=== PATIENT | female | born 1950 | race Caucasian/White ===

== ENCOUNTER 2017-07-14 11:14 | Emergency (ER) | payer OTHER ==
[2017-07-14 11:22] VITALS: TEMP 97.9
--- NOTE | 2017-07-14 12:04 | CPEKG ---
Heart Rate: 168 RR Interval: 357 QRSD Interval: 92 QT Interval: 241 QTC Interval: 403 P [place]: 0 QRS [place]: 19 T Wave [place]: 125 EKG Severity - ABNORMAL ECG - EKG Impression: SUPRAVENTRICULAR TACHYCARDIA EKG Impression: NONSPECIFIC T ABNORMALITIES, LATERAL LEADS Electronically Signed By: Lg Man 14-Jul-2017 15:55:36
[2017-07-14] MEDS ORDERED: ADENOSINE 6 MG/2 ML VIAL ONE (12:08)
--- NOTE | 2017-07-14 12:16 | EDPHY ---
H & P Stated Complaint: SVT since last 5pm. SOB. Time Seen by Provider: 07/14/17 12:08 HPI/ROS: Chief Complaint: Tachycardia HPI: 67-year-old woman history of SVT in the past presenting with rapid heart rate and shortness of breath since last night similar to her prior episodes. Patient did attempt vagal maneuvers but did not have excess. Had some generalized weakness. No fevers or chills. No leg pain or swelling. No recent travel. 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 She did take the metoprolol febrile at night without relief. She also took another 1 this morning again without any significant change. ROS: 10 point Review of Systems is negative except as noted in the HPI. PMH: SVT Social History: No smoking, no alcohol, no recreational drug use Family History: non-contributory Physical Exam: Gen: Awake, Alert, No Distress HEENT: Nose: no rhinorrhea Eyes: PERRLA, EOMI Mouth: Moist mucosa Neck: Supple, no JVD Chest: nontender, lungs clear to auscultation Heart: Tachycardic, rate of about 170, Abd: Soft, non-tender, no guarding Back: no CVA tenderness, no midline tenderness Ext: no edema, non-tender Skin: no rash Neuro: CN II-XII intact, Sensation grossly intact, Strength 5/5 in bilateral upper and lower extremities - Personal History Current Tetanus Diphtheria and Acellular Pertussis (TDAP): Yes Tetanus Vaccine Date: 2010 - Medical/Surgical History Hx Asthma: No Hx Chronic Respiratory Disease: No Hx Diabetes: No Hx Cardiac Disease: Yes Hx Renal Disease: No Hx Cirrhosis: No Hx Alcoholism: No Hx HIV/AIDS: No Hx Splenectomy or Spleen Trauma: No Other PMH: SVT - Social History Smoking Status: Former smoker Constitutional: Initial Vital Signs Temperature (C) 36.6 C 07/14/17 11:15 Heart Rate 91 07/14/17 11:15 Respiratory Rate 18 07/14/17 11:15 Blood Pressure 116/96 H 07/14/17 11:15 O2 Sat (%) 96 07/14/17 11:15 O2 Delivery Mode Room Air Allergies/Adverse Reactions: No Known Allergies Allergy (Unverified 11/28/15 12:32) Home Medications: Medication Instructions Recorded Metoprolol Succinate 07/14/17 Metoprolol Succinate 25 mg PO BID #60 tab.er.24h 07/14/17 Medical Decision Making - Diagnostics EKG Interpretation: ECG time 1202. Narrow complex tachycardia with a rate of 168, normal axis, no acute ST or T-wave changes. Is regular. Is consistent with SVT. Procedures: Procedure: Vasovagal cardioversion. Patient presenting SVT. Vasovagal maneuvers realized my pushing on her abdomen in her resisting. After approximately 30 seconds she reverted to a sinus rhythm. No medical interventions were required. Performed by me. Differential Diagnosis: Patient has had no recurrence of her SVT. Electrolytes normal. Discharge her with continuing metoprolol 25 mg twice a day. Referral for allergy follow-up. - Data Points Laboratory Results: Laboratory Results 07/14/17 12:05 07/14/17 12:05 07/14/17 07/14/17 12:05 12:05 WBC 11.62 10^3/uL H 10^3/uL (3.80-9.50) RBC 4.58 10^6/uL 10^6/uL (4.18-5.33) Hgb 14.0 g/dL g/dL (12.6-16.3) Hct 40.9 % % (38.0-47.0) MCV 89.3 fL fL (81.5-99.8) MCH 30.6 pg pg (27.9-34.1) MCHC 34.2 g/dL g/dL (32.4-36.7) RDW 12.6 % % (11.5-15.2) Plt Count 307 10^3/uL 10^3/uL (150-400) MPV 8.7 fL fL (8.7-11.7) Neut % (Auto) 66.1 % % (39.3-74.2) Lymph % (Auto) 23.2 % % (15.0-45.0) [place] % (Auto) 9.0 % % (4.5-13.0) Eos % (Auto) 0.8 % % (0.6-7.6) Baso % (Auto) 0.6 % % (0.3-1.7) Nucleat RBC Rel Count 0.0 % % (0.0-0.2) Absolute Neuts (auto) 7.67 10^3/uL H 10^3/uL (1.70-6.50) Absolute Lymphs (auto) 2.70 10^3/uL 10^3/uL (1.00-3.00) Absolute Monos (auto) 1.05 10^3/uL H 10^3/uL (0.30-0.80) Absolute Eos (auto) 0.09 10^3/uL 10^3/uL (0.03-0.40) Absolute Basos (auto) 0.07 10^3/uL 10^3/uL (0.02-0.10) Absolute Nucleated RBC 0.00 10^3/uL 10^3/uL (0-0.01) Immature Gran % 0.3 % % (0.0-1.1) Immature Gran # 0.04 10^3/uL 10^3/uL (0.00-0.10) Sodium 141 mEq/L mEq/L (134-144) Potassium 4.3 mEq/L mEq/L (3.5-5.2) Chloride 108 mEq/L mEq/L (97-110) Carbon Dioxide 19 mEq/l L mEq/l (22-31) Anion Gap 14 mEq/L mEq/L (8-16) BUN 21 mg/dL mg/dL (7-23) Creatinine 0.9 mg/dL mg/dL (0.6-1.0) Estimated GFR > 60 Glucose 123 mg/dL H mg/dL (70-100) Calcium 9.4 mg/dL mg/dL (8.5-10.4) Departure - Departure Disposition: Home, Routine, Self-Care Clinical Impression: Supraventricular tachycardia Condition: Good Instructions: Supraventricular Tachycardia (ED), Valsalva Maneuver (ED) Additional Instructions: Continue taking metoprolol, 25 mg twice a day. Follow up with Cardiology in 3-4 days for further evaluation. Return to the emergency department for increasing racing heart, lightheadedness , fainting, chest pain, shortness of breath, or any other concerns. Referrals: Kimberly Bradley MD [Primary Care Provider] - As per Instructions Justyn Lerma MD [Medical Doctor] - As per Instructions Prescriptions: Metoprolol Succinate 25 mg PO BID #60 tab.er.24h
[2017-07-14 12:46] LABS: % IMMATURE GRANULYOCYTES 0.3 % (0.0-1.1); ABSOLUTE IMMATURE GRANULOCYTES 0.04 10^3/uL (0.00-0.10); ADD DIFF? NO; ADD MORPH? NO; ADD SCAN? NO; ATYPICAL LYMPHOCYTE FLAG 10 (0-99); FRAGMENT RBC FLAG 0 (0-99); HEMATOCRIT 40.9 % (38.0-47.0); LEFT SHIFT FLG 0 (0-99); LIPEMIA HEMOLYSIS FLAG 90 (0-99); MEAN CELL HEMOGLOBIN 30.6 pg (27.9-34.1); MEAN CELL HEMOGLOBIN CONCENTR. 34.2 g/dL (32.4-36.7); MEAN CELL VOLUME 89.3 fL (81.5-99.8); MEAN PLATELET VOLUME 8.7 fL (8.7-11.7); PLATELET CLUMPS FLAG 0 (0-99); PLATELET COUNT 307 10^3/uL (150-400); RED BLOOD CELL COUNT 4.58 10^6/uL (4.18-5.33); RED CELL DISTRIBUTION WIDTH 12.6 % (11.5-15.2)
[2017-07-14 12:52] LABS: ANION GAP 14 mEq/L (8-16); CALCIUM 9.4 mg/dL (8.5-10.4); CARBON DIOXIDE 19 mEq/l (22-31); CHLORIDE 108 mEq/L (97-110); CREATININE 0.9 mg/dL (0.6-1.0); GLOMERULAR FILTRATION RATE > 60; GLUCOSE 123 mg/dL (70-100); POTASSIUM 4.3 mEq/L (3.5-5.2); SODIUM 141 mEq/L (134-144)
[2017-07-14 13:52] VITALS: RESP 16; O2SAT 97
[2017-07-14 14:16] VITALS: BP 113/79; PULSE 72
--- NOTE | 2017-07-14 16:02 | CPEKG ---
Heart Rate: 75 RR Interval: 800 P-R Interval: 136 QRSD Interval: 84 QT Interval: 376 QTC Interval: 420 P [place]: 48 QRS [place]: 33 T Wave [place]: -15 EKG Severity - BORDERLINE ECG - EKG Impression: SINUS RHYTHM EKG Impression: BORDERLINE T ABNORMALITIES, INFERIOR LEADS Electronically Signed By: Ralph Man 20-Jul-2017 17:07:10
== END 2017-07-14 14:27 | disposition home or self-care (01) ==
DX: I47.1 Supraventricular tachycardia (principal); Z87.891 Personal history of nicotine dependence
CPT/HCPCS: J0153

== ENCOUNTER 2017-07-28 19:33 | Emergency (ER) | payer OTHER ==
[2017-07-28 19:46] VITALS: TEMP 97.5
--- NOTE | 2017-07-28 19:54 | CPEKG ---
Heart Rate: 184 RR Interval: 326 QRSD Interval: 88 QT Interval: 268 QTC Interval: 469 P [place]: 0 QRS [place]: -9 T Wave [place]: 30 EKG Severity - ABNORMAL ECG - EKG Impression: SUPRAVENTRICULAR TACHYCARDIA Electronically Signed By: Aamir Wooten 28-Jul-2017 20:05:58
[2017-07-28] MEDS ORDERED: ADENOSINE 6 MG/2 ML VIAL IVP ONE (20:00)
[2017-07-28] MEDS ORDERED: NS 500 ML IV ONE (20:00)
--- NOTE | 2017-07-28 20:05 | EDPHY ---
H & P Stated Complaint: hx svt elevate hr Time Seen by Provider: 07/28/17 19:55 HPI/ROS: CHIEF COMPLAINT: SVT HISTORY OF PRESENT ILLNESS: The patient is a 67-year-old female who is healthy other than a history of SVT. She states that it is happen more often in last couple of months than typically. She typically can get her symptoms to resolve with vagal maneuvers. Today this did not work. His symptoms have been present since 3:00 p.m.. She takes metoprolol 25 mg twice daily. Her heart rate is currently 180 and regular. She denies recent fevers or illness. She denies chest pain or shortness of breath. REVIEW OF SYSTEMS: Constitutional: denies: chills, fever, recent illness, recent injury EENTM: denies: blurred vision, double vision, nose congestion Respiratory: denies: cough, shortness of breath Cardiac: See HPI Gastrointestinal/Abdominal: denies: abdominal pain, diarrhea, nausea, vomiting, blood streaked stools Genitourinary: denies: dysuria, frequency, hematuria, pain Musculoskeletal: denies: joint pain, muscle pain Skin: denies: lesions, rash, jaundice, bruising Neurological: denies: headache, numbness, paresthesia, tingling, dizziness, weakness Hematologic/Lymphatic: denies: blood clots, easy bleeding, easy bruising Immunologic/allergic: denies: HIV/AIDS, transplant EXAM: GENERAL: Well-appearing, well-nourished and in no acute distress. HEAD: Atraumatic, normocephalic. EYES: Pupils equal round and reactive to light, extraocular movements intact, sclera anicteric, conjunctiva are normal. ENT: TMs normal, nares patent, oropharynx clear without exudates. Moist mucous membranes. NECK: Normal range of motion, supple without lymphadenopathy or JVD. LUNGS: Breath sounds clear to auscultation bilaterally and equal. No wheezes rales or rhonchi. HEART: Tachycardic ABDOMEN: Soft, nontender, normoactive bowel sounds. No guarding, no rebound. No masses appreciated. BACK: No CVA tenderness, no spinal tenderness, step-offs or deformities EXTREMITIES: Normal range of motion, no pitting or edema. No clubbing or cyanosis. NEUROLOGICAL: Cranial nerves II through XII grossly intact. Normal speech, normal gait. 5 strength, normal movement in all extremities, normal sensation PSYCH: Normal mood, normal affect. SKIN: Warm, dry, normal turgor, no visible rashes or lesions. Source: Patient Exam Limitations: No limitations - Personal History Current Tetanus/Diphtheria Vaccine: Yes Current Tetanus Diphtheria and Acellular Pertussis (TDAP): Yes Tetanus Vaccine Date: 2010 - Medical/Surgical History Hx Asthma: No Hx Chronic Respiratory Disease: No Hx Diabetes: No Hx Cardiac Disease: Yes Hx Renal Disease: No Hx Cirrhosis: No Hx Alcoholism: No Hx HIV/AIDS: No Hx Splenectomy or Spleen Trauma: No Other PMH: SVT - Family History Significant Family History: No pertinent family hx - Social History Smoking Status: Former smoker Alcohol Use: Sober Drug Use: None Constitutional: Initial Vital Signs Temperature (C) 36.4 C 07/28/17 19:42 Heart Rate 186 H 07/28/17 19:42 Respiratory Rate 18 07/28/17 19:42 Blood Pressure 107/78 07/28/17 19:42 O2 Sat (%) 96 07/28/17 19:42 O2 Delivery Mode Room Air O2 (L/minute) 2 Allergies/Adverse Reactions: No Known Allergies Allergy (Unverified 11/28/15 12:32) Home Medications: Medication Instructions Recorded Metoprolol Succinate 07/14/17 Metoprolol Succinate 25 mg PO BID #60 tab.er.24h 07/14/17 Medical Decision Making - Diagnostics EKG Interpretation: An EKG obtained and was read and documented in trace view. Please see trace view for full reading and report. SVT, similar to previous A repeat EKG obtained and was read and documented in trace view. Please see trace view for full reading and report. Sinus rhythm ED Course/Re-evaluation: We did attempt vagal maneuvers here in the emergency department including blowing through syringe, carotid massage, breath-holding and abdominal compression as well as Trendelenburg and leg lift. None of these worked. We will treat her with adenosine. 8:10 p.m. the patient conferred with 6 mg adenosine. She feels completely better. She has follow-up with Dr. Manrique in 2 weeks to consider ablation. She declines further workup or testing at this time. We will observe. 8:50 p.m. the patient is doing completely well and is eager to go home. She declines further workup or testing. Differential Diagnosis: Partial list of the Differential diagnosis considered include but were not limited to; SVT, AFib and although unlikely based on the history and physical exam, I also considered acute coronary disease, infection, electrolyte abnormality. I discussed these differential diagnoses and the plan with the patient as well as the usual and expected course. The patient understands that the diagnosis is provisional and that in medicine we are not always correct and that further workup is often warranted. Usual and customary warnings were given. All of the patient's questions were answered. The patient was instructed to return to the emergency department should the symptoms at all worsen or return, otherwise to followup with the physician as we discussed. - Data Points Medications Given: Discontinued Medications Adenosine (Adenosine) 6 mg IVP EDNOW ONE Stop: 07/28/17 20:01 Last Admin: 07/28/17 20:11 Dose: 6 mg Sodium Chloride (Ns) 500 mls @ 0 mls/hr IV ONCE ONE PRN Reason: Wide Open Stop: 07/28/17 20:01 Last Admin: 07/28/17 20:00 Dose: 500 mls Departure - Departure Disposition: Home, Routine, Self-Care Clinical Impression: Supraventricular tachycardia Condition: Fair Instructions: Supraventricular Tachycardia (ED) Referrals: Kimberly Bradley MD [Primary Care Provider] - As per Instructions Lei Manrique MD [Medical Doctor] - As per Instructions
--- NOTE | 2017-07-28 20:29 | CPEKG ---
Heart Rate: 84 RR Interval: 714 P-R Interval: 152 QRSD Interval: 90 QT Interval: 392 QTC Interval: 464 P [place]: 56 QRS [place]: 16 T Wave [place]: 23 EKG Severity - NORMAL ECG - EKG Impression: SINUS RHYTHM Electronically Signed By: Aamir Wooten 28-Jul-2017 20:45:00
[2017-07-28 20:47] VITALS: BP 104/74; PULSE 81; RESP 20; O2SAT 95
== END 2017-07-28 21:04 | disposition home or self-care (01) ==
DX: I47.1 Supraventricular tachycardia (principal); Z87.891 Personal history of nicotine dependence
CPT/HCPCS: 96374; J0153

== ENCOUNTER 2017-09-14 10:45 | Observation (INO) | payer OTHER ==
[2017-09-14] MEDS ORDERED: NS 1,000 ML IV ONE (11:02)
--- NOTE | 2017-09-14 11:20 | CPEKG ---
Heart Rate: 83 RR Interval: 723 P-R Interval: 136 QRSD Interval: 88 QT Interval: 384 QTC Interval: 452 P [place]: 40 QRS [place]: 7 T Wave [place]: 14 EKG Severity - NORMAL ECG - EKG Impression: SINUS RHYTHM Electronically Signed By: Justyn Lerma 14-Sep-2017 17:40:20
--- NOTE | 2017-09-14 11:20 | CPEKG ---
Heart Rate: 83 RR Interval: 723 P-R Interval: 136 QRSD Interval: 88 QT Interval: 384 QTC Interval: 452 P [place]: 40 QRS [place]: 7 T Wave [place]: 14 EKG Severity - NORMAL ECG - EKG Impression: SINUS RHYTHM Electronically Signed By: Justyn Lerma 14-Sep-2017 17:40:20
[2017-09-14 11:32] LABS: PLATELET COUNT 278 10^3/uL (150-400)
[2017-09-14 11:41] LABS: INR 0.99 (0.83-1.16)
--- NOTE | 2017-09-14 11:41 | PDHPUP ---
History & Physical Update H&P update statement: This history and physical update is based on an assessment of the patient which was completed after admission or registration (within 24 hours), but prior to the surgery/procedure. H&P update: H&P reviewed & patient examined, no change in patient's condition since H&P completed
[2017-09-14] MEDS ORDERED: HEPARIN 10,000 UNIT/10 ML MDV ONE (12:11)
[2017-09-14] MEDS ORDERED: LIDOCAINE 1% 300 MG/30 ML SDV ONE (12:11)
[2017-09-14] MEDS ORDERED: ISOPROTERENOL HCL/D5W 0.2 MG/50 ML BAG IV ONE (12:12)
[2017-09-14] MEDS ORDERED: BUPIVACAINE 0.5% 30 ML SDV ONE (12:12)
[2017-09-14] MEDS ORDERED: DEXAMETHASONE 4 MG/ML VIAL ONE (12:53)
[2017-09-14] MEDS ORDERED: PROPOFOL 200 MG/20 ML VIAL ONE (12:53)
[2017-09-14] MEDS ORDERED: PROPOFOL/EMULSION 500 MG/50 ML BOTTLE IV ONE (12:53)
[2017-09-14] MEDS ORDERED: fentaNYL 100 MCG/2 ML INJ ONE (12:53)
--- NOTE | 2017-09-14 12:53 | PDANEPAE ---
ANE History of Present Illness Patient presents for SVT ablation ANE Past Medical History - Cardiovascular History Hx Arrhythmias: Yes - Pulmonary History Hx Oxygen in Use at Home: No Hx Sleep Apnea: No - Endocrine History Hx Diabetes: No ANE Review of Systems Review of Systems: ANE Patient History - Allergies Allergies/Adverse Reactions: adhesive Allergy (Verified 09/13/17 10:48) Rash - Home Medications Home medications: home medication list seen and reviewed Home Medications: Herbals/Supplements -Info Only 1 ea PO DAILY 09/13/17 [Last Taken Unknown] Metoprolol Succinate Xr [Toprol Xl 25 mg (*)] 25 mg PO BID 09/13/17 [Last Taken Unknown] - NPO status NPO Status: no food or drink >8 hours - Anes Hx Anes Hx: no prior problems - Smoking Hx Smoking Status: Former smoker ANE Labs/Vital Signs - Labs Result Diagrams: 09/14/17 11:20 09/14/17 11:20 - Vital Signs Height: 170 cm Weight: 96.2 kg ANE Physical Exam - Airway Neck exam: FROM Mallampati Score: Class 1 Mouth exam: normal dental/mouth exam - Pulmonary Pulmonary: no respiratory distress - Cardiovascular Cardiovascular: regular rate and rhythym - ASA Status ASA Status: II ANE Anesthesia Plan Anesthesia Plan: general endotracheal anesthesia
[2017-09-14] MEDS ORDERED: ONDANSETRON 4 MG/2 ML VIAL ONE (12:54)
[2017-09-14] MEDS ORDERED: PHENYLEPHRINE HCL 100 MCG/ML SYR ONE ×2 (13:15)
[2017-09-14] MEDS ORDERED: ROCURONIUM 100 MG/10 ML VIAL ONE (13:50)
[2017-09-14] MEDS ORDERED: SUGAMMADEX SODIUM 200 MG/2 ML VIAL IVP ONE (14:27)
[2017-09-14] MEDS ORDERED: ACETAMINOPHEN 325 MG TAB PO PRN (14:29)
[2017-09-14] MEDS ORDERED: ONDANSETRON 4 MG/2 ML VIAL IVP PRN ×2 (14:29→14:49)
[2017-09-14] MEDS ORDERED: NALOXONE HCL 0.4 MG/ML INJ IVP PRN (14:49)
[2017-09-14] MEDS ORDERED: fentaNYL 100 MCG/2 ML INJ IVP PRN (14:49)
[2017-09-14] MEDS ORDERED: ACETAMINOPHEN 500 MG TAB PO PRN (14:49)
[2017-09-14] MEDS ORDERED: LR 500 ML IV PRN (14:49)
--- NOTE | 2017-09-14 14:49 | POSTANESTH ---
Post Anesthetic Evaluation Cardiovascular Status: Normal, Stable Respiratory Status: Normal, Stable Level of Consciousness/Mental Status: Can Participate in Eval Pain Control: Adequate, Prn Tx Ordered Nausea/Vomiting Control: Adequate, Prn Tx Ordered Complications Possibly Related to Anesthesia: None Noted
--- NOTE | 2017-09-14 16:30 | CPEKG ---
Heart Rate: 84 RR Interval: 714 P-R Interval: 160 QRSD Interval: 96 QT Interval: 428 QTC Interval: 507 P [place]: 53 QRS [place]: 25 T Wave [place]: 27 EKG Severity - BORDERLINE ECG - EKG Impression: SINUS RHYTHM EKG Impression: BORDERLINE T ABNORMALITIES, INFERIOR LEADS EKG Impression: BORDERLINE PROLONGED QT INTERVAL Electronically Signed By: Justyn Lerma 14-Sep-2017 17:40:32
--- NOTE | 2017-09-14 16:30 | CPEKG ---
Heart Rate: 84 RR Interval: 714 P-R Interval: 160 QRSD Interval: 96 QT Interval: 428 QTC Interval: 507 P [place]: 53 QRS [place]: 25 T Wave [place]: 27 EKG Severity - BORDERLINE ECG - EKG Impression: SINUS RHYTHM EKG Impression: BORDERLINE T ABNORMALITIES, INFERIOR LEADS EKG Impression: BORDERLINE PROLONGED QT INTERVAL Electronically Signed By: Justyn Lerma 14-Sep-2017 17:40:32
[2017-09-14] MEDS: OXYCODONE/APAP 5/325 TAB PO PRN (23:18)
[2017-09-15 05:30] LABS: PLATELET COUNT 250 10^3/uL (150-400)
[2017-09-15 05:40] LABS: CREATINE KINASE 22 IU/L (0-156)
[2017-09-15 05:56] LABS: INR 1.04 (0.83-1.16); PROTIME(PATIENT) 13.5 SEC (12.0-15.0)
[2017-09-15 08:02] VITALS: RESP 16; O2SAT 93
--- NOTE | 2017-09-15 08:38 | CPEKG ---
Heart Rate: 65 RR Interval: 923 P-R Interval: 152 QRSD Interval: 98 QT Interval: 448 QTC Interval: 466 P [place]: 49 QRS [place]: 36 T Wave [place]: 35 EKG Severity - NORMAL ECG - EKG Impression: SINUS RHYTHM Electronically Signed By: Justyn Lerma 15-Sep-2017 11:01:03
--- NOTE | 2017-09-15 08:38 | CPEKG ---
Heart Rate: 65 RR Interval: 923 P-R Interval: 152 QRSD Interval: 98 QT Interval: 448 QTC Interval: 466 P [place]: 49 QRS [place]: 36 T Wave [place]: 35 EKG Severity - NORMAL ECG - EKG Impression: SINUS RHYTHM Electronically Signed By: Justyn Lerma 15-Sep-2017 11:01:03
[2017-09-15] MEDS: OXYCODONE/APAP 5/325 TAB PO PRN (08:51)
[2017-09-15] MEDS ORDERED: Herbals/Supplements -Info Only PO SCH (09:00)
[2017-09-15] MEDS ORDERED: ASPIRIN 325 MG TAB PO SCH (09:00)
--- NOTE | 2017-09-15 09:09 | ASMTCASEMG ---
Living Arrangements What is your living Answers: With Child(al) arrangement? Who do you live with? Type Of Residence What kind of residence do Answers: House you live in? Discharge Plan Comments Coordination Status Comments Notes: Pt is a 65 y/o female admitted for a SVT. Anticipates that pt will d/c independent when medically stable w/ supportive family. No therapies ordered at this time. CM available for changes. Date Signed: 09/15/2017 09:08 AM Electronically Signed By:VISHNU Benítez
[2017-09-15] MEDS ORDERED: FLU VACC QS 2017-18 (3YR+)/PF 0.5 ML SYR (FLUARIX QUAD) IM ONE (09:43)
[2017-09-15 12:08] VITALS: PULSE 63; TEMP 97.9
[2017-09-15 12:15] VITALS: BP 94/62
--- NOTE | 2017-09-15 12:27 | ECHO ---
[email or web address] [address] [address] Main: [phone] Fax: Transthoracic Echocardiogram Name: SEAN BARFIELD MR#: [id number] Study Date: 09/15/2017 Study Time: 08:06 AM Date of : 1950 Age: 67 year(s) Height: 167.6 cm (66 in.) Weight: 96.16 kg (212 lb.) BSA: 2.05 m2 Gender: Female Examination: Echo Indication: Post EP, Supraventricular Tachycardia Image Quality: Contrast: Requested by: Lei Manrique BP: 110 mmHg/65 mmHg Heart Rate: Rhythm: Indication: Post EP, Supraventricular Tachycardia Procedure Staff Public Message Service Supervisor: López Kaur Reading Physician: Harvinder Grady Requesting Provider: Measurements: Chambers Valvular Assessment AV/MV Valvular Assessment TV/PV Normal Normal Normal Name Value Range Name Value Range Name Value Range Ao Yolanda (MM): 3.9 cm (2.2 cm-3.7 AV Vmax: 1.13 m/s (1 m/s-1.7 PV Vmax: 0.98 m/s (0.6 m/s-0.9 cm) m/s) m/s) IVSd (2D): 0.9 cm (0.6 cm-1.1 AV maxP mmHg ( - ) PV PGmax: 4 mmHg ( - ) cm) LVOT Vmax: 0.82 m/s (0.7 m/s-1.1 LVDd (2D): 5.2 cm (3.9 cm-5.3 m/s) cm) MV E Vmax: 0.52 m/s ( - ) LVDs (2D): 2.8 cm (2.1 cm-4 MV A Vmax: 0.88 m/s ( - ) cm) MV E/A: 0.59 ( - ) LVPWd (2D): 0.9 cm ( - ) LVEF (2D): 77 (>=54 %) Continued Measurements: Chambers Valvular Assessment AV/MV Name Value Name Value LADs Lon.5 cm MV E/E' Septal: 7.00 LA Area: 16.4 cm2 MV E/E' Lateral: 7.70 LA Volume: 48 ml LA Volume Index: 23.4 ml/m2 Findings: Left Ventricle: Normal size left ventricle. Normal global systolic LV function. EF is 77 %. No regional wall motion abnormality. Diastolic dysfunction is present. . Right Ventricle: Patient: SEAN BARFIELD Study Date: 09/15/2017 Page 1 of 2 08:06 AM Normal size right ventricle. Normal RV function. Left Atrium: The left atrium is normal in size. Right Atrium: The right atrium is normal in size. Mitral Valve: The mitral valve is normal in appearance and function. There is no mitral valve regurgitation. Aortic Valve: The aortic valve is normal in appearance and function. The aortic valve is tri-leaflet. Tricuspid Valve: The tricuspid valve is normal in appearance and function. Pulmonic Valve: The pulmonic valve is normal in appearance and function. Aorta: The aorta is normal. Pericardium: No pericardial effusion. (No Signature Object) Patient: SEAN BARFIELD Study Date: 09/15/2017 Page 2 of 2 08:06 AM [id number]
--- NOTE | 2017-09-15 12:27 | ECHO ---
[email or web address] [address] [address] Main: [phone] Fax: Transthoracic Echocardiogram Name: SEAN BARFIELD MR#: [id number] Study Date: 09/15/2017 Study Time: 08:06 AM Date of : 1950 Age: 67 year(s) Height: 167.6 cm (66 in.) Weight: 96.16 kg (212 lb.) BSA: 2.05 m2 Gender: Female Examination: Echo Indication: Post EP, Supraventricular Tachycardia Image Quality: Contrast: Requested by: Lei Manrique BP: 110 mmHg/65 mmHg Heart Rate: Rhythm: Indication: Post EP, Supraventricular Tachycardia Procedure Staff Seo Engineer: López Kaur Reading Physician: Harvinder Grady Requesting Provider: Measurements: Chambers Valvular Assessment AV/MV Valvular Assessment TV/PV Normal Normal Normal Name Value Range Name Value Range Name Value Range Ao Yolanda (MM): 3.9 cm (2.2 cm-3.7 AV Vmax: 1.13 m/s (1 m/s-1.7 PV Vmax: 0.98 m/s (0.6 m/s-0.9 cm) m/s) m/s) IVSd (2D): 0.9 cm (0.6 cm-1.1 AV maxP mmHg ( - ) PV PGmax: 4 mmHg ( - ) cm) LVOT Vmax: 0.82 m/s (0.7 m/s-1.1 LVDd (2D): 5.2 cm (3.9 cm-5.3 m/s) cm) MV E Vmax: 0.52 m/s ( - ) LVDs (2D): 2.8 cm (2.1 cm-4 MV A Vmax: 0.88 m/s ( - ) cm) MV E/A: 0.59 ( - ) LVPWd (2D): 0.9 cm ( - ) LVEF (2D): 77 (>=54 %) Continued Measurements: Chambers Valvular Assessment AV/MV Name Value Name Value LADs Lon.5 cm MV E/E' Septal: 7.00 LA Area: 16.4 cm2 MV E/E' Lateral: 7.70 LA Volume: 48 ml LA Volume Index: 23.4 ml/m2 Findings: Left Ventricle: Normal size left ventricle. Normal global systolic LV function. EF is 77 %. No regional wall motion abnormality. Diastolic dysfunction is present. . Right Ventricle: Patient: SEAN BARFIELD Study Date: 09/15/2017 Page 1 of 2 08:06 AM Normal size right ventricle. Normal RV function. Left Atrium: The left atrium is normal in size. Right Atrium: The right atrium is normal in size. Mitral Valve: The mitral valve is normal in appearance and function. There is no mitral valve regurgitation. Aortic Valve: The aortic valve is normal in appearance and function. The aortic valve is tri-leaflet. Tricuspid Valve: The tricuspid valve is normal in appearance and function. Pulmonic Valve: The pulmonic valve is normal in appearance and function. Aorta: The aorta is normal. Pericardium: No pericardial effusion. (No Signature Object) Patient: SEAN BARFIELD Study Date: 09/15/2017 Page 2 of 2 08:06 AM [id number]
--- NOTE | 2017-09-15 12:27 | ECHO ---
[email or web address] [address] [address] Main: [phone] Fax: Transthoracic Echocardiogram Name: SEAN BARFIELD MR#: [id number] Study Date: 09/15/2017 Study Time: 08:06 AM Date of : 1950 Age: 67 year(s) Height: 167.6 cm (66 in.) Weight: 96.16 kg (212 lb.) BSA: 2.05 m2 Gender: Female Examination: Echo Indication: Post EP, Supraventricular Tachycardia Image Quality: Contrast: Requested by: Lei Manrique BP: 110 mmHg/65 mmHg Heart Rate: Rhythm: Indication: Post EP, Supraventricular Tachycardia Procedure Staff Ad Copy Writer: López Kaur Reading Physician: Harvinder Grady Requesting Provider: Measurements: Chambers Valvular Assessment AV/MV Valvular Assessment TV/PV Normal Normal Normal Name Value Range Name Value Range Name Value Range Ao Yolanda (MM): 3.9 cm (2.2 cm-3.7 AV Vmax: 1.13 m/s (1 m/s-1.7 PV Vmax: 0.98 m/s (0.6 m/s-0.9 cm) m/s) m/s) IVSd (2D): 0.9 cm (0.6 cm-1.1 AV maxP mmHg ( - ) PV PGmax: 4 mmHg ( - ) cm) LVOT Vmax: 0.82 m/s (0.7 m/s-1.1 LVDd (2D): 5.2 cm (3.9 cm-5.3 m/s) cm) MV E Vmax: 0.52 m/s ( - ) LVDs (2D): 2.8 cm (2.1 cm-4 MV A Vmax: 0.88 m/s ( - ) cm) MV E/A: 0.59 ( - ) LVPWd (2D): 0.9 cm ( - ) LVEF (2D): 77 (>=54 %) Continued Measurements: Chambers Valvular Assessment AV/MV Name Value Name Value LADs Lon.5 cm MV E/E' Septal: 7.00 LA Area: 16.4 cm2 MV E/E' Lateral: 7.70 LA Volume: 48 ml LA Volume Index: 23.4 ml/m2 Findings: Left Ventricle: Normal size left ventricle. Normal global systolic LV function. EF is 77 %. No regional wall motion abnormality. Diastolic dysfunction is present. . Right Ventricle: Patient: SEAN BARFIELD Study Date: 09/15/2017 Page 1 of 2 08:06 AM Normal size right ventricle. Normal RV function. Left Atrium: The left atrium is normal in size. Right Atrium: The right atrium is normal in size. Mitral Valve: The mitral valve is normal in appearance and function. There is no mitral valve regurgitation. Aortic Valve: The aortic valve is normal in appearance and function. The aortic valve is tri-leaflet. Tricuspid Valve: The tricuspid valve is normal in appearance and function. Pulmonic Valve: The pulmonic valve is normal in appearance and function. Aorta: The aorta is normal. Pericardium: No pericardial effusion. (No Signature Object) Patient: SEAN BARFIELD Study Date: 09/15/2017 Page 2 of 2 08:06 AM [id number]
--- NOTE | 2017-09-15 14:04 | GDS ---
[f rep st] DISCHARGE SUMMARY ADMISSION DIAGNOSIS: Paroxysmal supraventricular tachycardia. DISCHARGE DIAGNOSES: 1. Paroxysmal supraventricular tachycardia. 2. Status post supraventricular tachycardia ablation. PROCEDURES DONE DURING HOSPITALIZATION: 1. Electrocardiogram. 2. Electrophysiology study. 3. Supraventricular tachycardia ablation. 4. Echocardiogram. BRIEF HISTORY: Please see H and P. The patient a 67-year-old female who reported palpitations since 2011. She has had 2 recent emergency department visits, with noted accelerated heart rate, up to 16 8 beats per minute. During these episodes, she did report dizziness and lightheadedness. She had be en started on metoprolol, unfortunately did have a recurrence of SVT on medication. She has had no s yncopal events. She was seen by Dr. Manrique in the office for evaluation, felt to be appropriate candid ate to undergo electrophysiology study and, if necessary, SVT ablation. HOSPITAL COURSE: Patient was admitted through CVC, prepped for procedure, and taken to the electroph ysiology suite. There, Dr. Manrique performed electrophysiology study, identifying pathway, and then pro ceeded with intervention of ablation. No complications, patient was transferred back to the CVC, and ultimately to the PCU for overnight observation. There on, continuous cardiac monitoring, she has r emained in sinus rhythm with no malignant arrhythmias or pauses noted. She denies any chest pain or shortness of breath. She has been up and walking the unit without difficulty. She reports no orthop tito, lightheadedness, PND, edema, near-syncope, or syncopal events. PHYSICAL EXAMINATION: Done today: GENERAL APPEARANCE: A medium built, mildly obese, fema le. She is alert and oriented to person, place, time, and situation. Appears to be under no acute d istress. VITAL SIGNS: Current vital signs are blood pressure of 113/75. Heart rate is 69, sinus rh ythm on the monitor. Respirations 16. Saturating 93% on room air. Temperature 36.1 degrees Celsius . HEENT: Head is normocephalic. Lips and tongue are pink and moist with no signs of cyanosis. Con junctivae pink. NECK: Trachea is midline, no jugular JVD, +2 carotid pulses, no auscultated bruits. RESPIRATORY: Lungs clear to auscultation, no rhonchi, rales or wheezes. No accessory muscle use, no intercostal muscle retraction. CARDIAC: Regular rate, regular rhythm, S1, S2, no S3, S4, gallops , rubs or murmur noted. ABDOMEN: Soft, nontender, bowel sounds x4 quadrants, no organomegaly, no pa lpable masses. SKIN: [place], warm, dry, no cyanosis, no clubbing, no peripheral edema. VASCULAR: +2 carotids bilateral, +2 radials bilateral, +2 dorsal pedal and posterior tibial pulses bilateral. Ca theter insertion site, right groin site, with no redness, swelling, drainage, ecchymosis, or hematoma . No auscultated bruit over site. LABORATORY STUDIES: Drawn today show WBC of 6.89, hemoglobin 12.9, hematocrit of 37.2, platelet coun t of 250. INR 1.04. Sodium of 140, potassium 4.8, chloride 105, CO2 26, BUN 17, creatinine 0.8, glu cose 127, calcium 8.9. CK of 22, CK/MB fraction of 0.3, troponin of 0.039. Note, expected elevated cardiac enzymes status post ablation. STUDIES: Electrophysiology and ablation as mentioned above. Electrocardiogram done today shows sinu s rhythm, normal axis, no significant ST or T-wave abnormalities suggestive of ischemia. Echocardiog anita done this morning showing normal LV size with normal systolic function. EF estimated at 77% with no regional wall motion abnormalities, diastolic dysfunction is present, RV is normal size and funct ion, both atriums are within normal limits, no significant valvular heart disease, no pericardial eff usion. DISCHARGE DISPOSITION: Patient will be discharged home in stable condition. She is under activity r estrictions of not lifting more than 10 pounds in the next week and no strenuous activity for the nex t 2 weeks. DISCHARGE MEDICATIONS: Please see discharge medication reconciliation. Note, patient has been start ed on aspirin 81 mg p.o. daily, her metoprolol has been discontinued. DISCHARGE INSTRUCTIONS: Post electrophysiology/SVT ablation discharge instructions were gone over wi th the patient including monitoring for signs of infection, bleeding precautions, activity restrictio ns, bathing precautions, medication compliance, and DVT precautions. At the time of discharge, carmen dey verbalizes understanding of all instructions. She has a followup appointment set with Dr. Manrique in 1 months' time, sooner if necessary. Patient has been told that, if any problems or concerns come u p post discharge, she is to notify our office or return to the hospital immediately. Total time spent on discharge greater than 30 minutes. /[id number]/MODL
--- NOTE | 2017-09-15 14:44 | ASDISCHSUM ---
Discharge Information Plan Status:Home with No Needs Medically Cleared to Leave:09/15/2017 Discharge Date:09/15/2017 01:53 PM CM D/C Disposition:Home, Routine, Self-Care ADT D/C Disposition:Home, Routine, Self-Care Projected Discharge Date:09/15/2017 12:00 AM Transportation at D/C:Self Discharge Delay Reason: Follow-Up Date:09/15/2017 12:00 AM Discharge Slot: Final Diagnosis: Placement Information Patient Contact Information Contact Name:CHRISTOS Relationship:Daughter Address:[address] [place] [address] Work Phone: [facility] Alternate Phone: State/Zip Code:[place] [address] Email: Financial Information Financial Class:[facility] Primary Plan Desc:[facility] Primary Plan Number:[id number] Secondary Plan Desc: Secondary Plan Number: Assessment Information [facility] Initial CM Assessment Living Arrangements What is your living Answers: With Child(al) arrangement? Who do you live with? Type Of Residence What kind of residence do Answers: House you live in? Discharge Plan Comments Coordination Status Comments Notes: Pt is a 65 y/o female admitted for a SVT. Anticipates that pt will d/c independent when medically stable w/ supportive family. No therapies ordered at this time. CM available for changes. Date Signed: 09/15/2017 09:08 AM Electronically Signed By:VISHNU Benítez Intervention Information
--- NOTE | 2017-09-15 14:44 | ASDISCHSUM ---
Discharge Information Plan Status:Home with No Needs Medically Cleared to Leave:09/15/2017 Discharge Date:09/15/2017 01:53 PM CM D/C Disposition:Home, Routine, Self-Care ADT D/C Disposition:Home, Routine, Self-Care Projected Discharge Date:09/15/2017 12:00 AM Transportation at D/C:Self Discharge Delay Reason: Follow-Up Date:09/15/2017 12:00 AM Discharge Slot: Final Diagnosis: Placement Information Patient Contact Information Contact Name:CHRISTOS Relationship:Daughter Address:[address] [place] [address] Work Phone: [facility] Alternate Phone: State/Zip Code:[place] [address] Email: Financial Information Financial Class:[facility]urea [facility] Primary Plan Desc:[facility]A [facility] Primary Plan Number:[id number] Secondary Plan Desc: Secondary Plan Number: Assessment Information [facility] Initial CM Assessment Living Arrangements What is your living Answers: With Child(al) arrangement? Who do you live with? Type Of Residence What kind of residence do Answers: House you live in? Discharge Plan Comments Coordination Status Comments Notes: Pt is a 65 y/o female admitted for a SVT. Anticipates that pt will d/c independent when medically stable w/ supportive family. No therapies ordered at this time. CM available for changes. Date Signed: 09/15/2017 09:08 AM Electronically Signed By:VISHNU Benítez Intervention Information
--- NOTE | 2017-09-15 14:44 | ASDISCHSUM ---
Discharge Information Plan Status:Home with No Needs Medically Cleared to Leave:09/15/2017 Discharge Date:09/15/2017 01:53 PM CM D/C Disposition:Home, Routine, Self-Care ADT D/C Disposition:Home, Routine, Self-Care Projected Discharge Date:09/15/2017 12:00 AM Transportation at D/C:Self Discharge Delay Reason: Follow-Up Date:09/15/2017 12:00 AM Discharge Slot: Final Diagnosis: Placement Information Patient Contact Information Contact Name:CHRISTOS Relationship:Daughter Address:[address] [place] [address] Work Phone: [facility] Alternate Phone: State/Zip Code:[place] [address] Email: Financial Information Financial Class:[facility]urea [facility] Primary Plan Desc:[facility]A [facility] Primary Plan Number:[id number] Secondary Plan Desc: Secondary Plan Number: Assessment Information [facility] Initial CM Assessment Living Arrangements What is your living Answers: With Child(al) arrangement? Who do you live with? Type Of Residence What kind of residence do Answers: House you live in? Discharge Plan Comments Coordination Status Comments Notes: Pt is a 65 y/o female admitted for a SVT. Anticipates that pt will d/c independent when medically stable w/ supportive family. No therapies ordered at this time. CM available for changes. Date Signed: 09/15/2017 09:08 AM Electronically Signed By:VISHNU Benítez Intervention Information
--- NOTE | 2017-09-16 12:33 | EPPROC ---
Electrophysiology Procedure Note: PROCEDURES PERFORMED: 07322-41 EP evaluation with RA/RV/LA pace/record, with arrhythmia induction 43005-88 EP evaluation with RA/RV pace record, insert/reposition catheter, with arrhythmia induction 53140 Intracardiac catheter ablation, SVT arrhythmogenic focus 47581 3D mapping Fluoroscopy INDICATION: Symptomatic SVT with 2 episodes which brought her to ER and hence pt preferred to undergo ablation to prevent further palpitations and admission to ER as well as to avoid medical management. PROCEDURE: Catheters & Anesthesia: The patient arrived in the Electrophysiology Laboratory in the fasting state. The right clavicular region, right groin, and left groin area were prepped and draped in the usual sterile manner. Anesthesiologist administered general anesthesia. Appropriate non-invasive blood pressure, pulse oximetry and end- tidal CO2 monitoring was established. All catheters were placed percutaneously using the modified Seldinger technique , and advanced into position under fluoroscopic guidance. One CRD2 catheter was advanced to the His-bundle position via the right femoral vein. . One #7 Guamanian deflectable catheter with 10 pairs of electrodes was placed via the right femoral vein into the coronary sinus. Programmed stimulation was performed from the right atrium, right ventricle and coronary sinus (left atrium). Parahisian pacing demonstrated constant H-A interval with changing V-A intervals and stimulus-A intervals during capture and loss of capture of proximal RBB proving retrograde conduction over AV node. AVNRT was induced easily during burst pacing. . VA interval was 22 ms. VA during RV pacing was 92ms. Mapping of the right atrium and coronary sinus during AVNRT identified earliest atrial activation above the tendon of Irwin at a level slightly posterior to the level of the His bundle, consistent with retrograde conduction over the fast AV makayla pathway. A #8 Guamanian deflectable quadrapolar electrode catheter (2mm-5mm-2mm spacing) with 4 mm tip electrode and sensor for the 3D mapping Carto system was advanced to the right atrium. 3 D mapping of the inter-atrial septum and coronary sinus was performed and location of the AV node was marked. RF applications were delivered to the region between the tricuspid annulus and the coronary sinus ostium, at the level of the upper edge of the coronary sinus ostium. Junctional rhythm occurred during all of the RF applications. Programmed stimulation was continued post ablation at baseline and during graded doses of isoproterenol [id number]/min. Sustained AVNRT was not inducible. There were 2 echo beats. The catheters were removed. The patient was transferred to the cardiovascular holding area in stable condition. Vascular access sheaths were removed in the holding area. There were no apparent complications. 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 ( Slow/fast AVNRT). Successful ablation of the slow AV makayla pathway with elimination of 1:1 antegrade conduction over the slow AV makayla pathway, all retrograde conduction over the slow AV makayla pathway and the inducibility of AVNRT. No complications.
--- NOTE | 2017-09-16 12:33 | EPPROC ---
Electrophysiology Procedure Note: PROCEDURES PERFORMED: 18528-95 EP evaluation with RA/RV/LA pace/record, with arrhythmia induction 83650-71 EP evaluation with RA/RV pace record, insert/reposition catheter, with arrhythmia induction 79707 Intracardiac catheter ablation, SVT arrhythmogenic focus 46588 3D mapping Fluoroscopy INDICATION: Symptomatic SVT with 2 episodes which brought her to ER and hence pt preferred to undergo ablation to prevent further palpitations and admission to ER as well as to avoid medical management. PROCEDURE: Catheters & Anesthesia: The patient arrived in the Electrophysiology Laboratory in the fasting state. The right clavicular region, right groin, and left groin area were prepped and draped in the usual sterile manner. Anesthesiologist administered general anesthesia. Appropriate non-invasive blood pressure, pulse oximetry and end- tidal CO2 monitoring was established. All catheters were placed percutaneously using the modified Seldinger technique , and advanced into position under fluoroscopic guidance. One CRD2 catheter was advanced to the His-bundle position via the right femoral vein. . One #7 Ghanaian deflectable catheter with 10 pairs of electrodes was placed via the right femoral vein into the coronary sinus. Programmed stimulation was performed from the right atrium, right ventricle and coronary sinus (left atrium). Parahisian pacing demonstrated constant H-A interval with changing V-A intervals and stimulus-A intervals during capture and loss of capture of proximal RBB proving retrograde conduction over AV node. AVNRT was induced easily during burst pacing. . VA interval was 22 ms. VA during RV pacing was 92ms. Mapping of the right atrium and coronary sinus during AVNRT identified earliest atrial activation above the tendon of Irwin at a level slightly posterior to the level of the His bundle, consistent with retrograde conduction over the fast AV makayla pathway. A #8 Ghanaian deflectable quadrapolar electrode catheter (2mm-5mm-2mm spacing) with 4 mm tip electrode and sensor for the 3D mapping Carto system was advanced to the right atrium. 3 D mapping of the inter-atrial septum and coronary sinus was performed and location of the AV node was marked. RF applications were delivered to the region between the tricuspid annulus and the coronary sinus ostium, at the level of the upper edge of the coronary sinus ostium. Junctional rhythm occurred during all of the RF applications. Programmed stimulation was continued post ablation at baseline and during graded doses of isoproterenol [id number]/min. Sustained AVNRT was not inducible. There were 2 echo beats. The catheters were removed. The patient was transferred to the cardiovascular holding area in stable condition. Vascular access sheaths were removed in the holding area. There were no apparent complications. 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 ( Slow/fast AVNRT). Successful ablation of the slow AV makayla pathway with elimination of 1:1 antegrade conduction over the slow AV makayla pathway, all retrograde conduction over the slow AV makayla pathway and the inducibility of AVNRT. No complications.
--- NOTE | 2017-09-16 12:33 | EPPROC ---
Electrophysiology Procedure Note: PROCEDURES PERFORMED: 80642-12 EP evaluation with RA/RV/LA pace/record, with arrhythmia induction 55304-92 EP evaluation with RA/RV pace record, insert/reposition catheter, with arrhythmia induction 27322 Intracardiac catheter ablation, SVT arrhythmogenic focus 90612 3D mapping Fluoroscopy INDICATION: Symptomatic SVT with 2 episodes which brought her to ER and hence pt preferred to undergo ablation to prevent further palpitations and admission to ER as well as to avoid medical management. PROCEDURE: Catheters & Anesthesia: The patient arrived in the Electrophysiology Laboratory in the fasting state. The right clavicular region, right groin, and left groin area were prepped and draped in the usual sterile manner. Anesthesiologist administered general anesthesia. Appropriate non-invasive blood pressure, pulse oximetry and end- tidal CO2 monitoring was established. All catheters were placed percutaneously using the modified Seldinger technique , and advanced into position under fluoroscopic guidance. One CRD2 catheter was advanced to the His-bundle position via the right femoral vein. . One #7 Liberian deflectable catheter with 10 pairs of electrodes was placed via the right femoral vein into the coronary sinus. Programmed stimulation was performed from the right atrium, right ventricle and coronary sinus (left atrium). Parahisian pacing demonstrated constant H-A interval with changing V-A intervals and stimulus-A intervals during capture and loss of capture of proximal RBB proving retrograde conduction over AV node. AVNRT was induced easily during burst pacing. . VA interval was 22 ms. VA during RV pacing was 92ms. Mapping of the right atrium and coronary sinus during AVNRT identified earliest atrial activation above the tendon of [place]win at a level slightly posterior to the level of the His bundle, consistent with retrograde conduction over the fast AV makayla pathway. A #8 Liberian deflectable quadrapolar electrode catheter (2mm-5mm-2mm spacing) with 4 mm tip electrode and sensor for the 3D mapping Carto system was advanced to the right atrium. 3 D mapping of the inter-atrial septum and coronary sinus was performed and location of the AV node was marked. RF applications were delivered to the region between the tricuspid annulus and the coronary sinus ostium, at the level of the upper edge of the coronary sinus ostium. Junctional rhythm occurred during all of the RF applications. Programmed stimulation was continued post ablation at baseline and during graded doses of isoproterenol [id number]/min. Sustained AVNRT was not inducible. There were 2 echo beats. The catheters were removed. The patient was transferred to the cardiovascular holding area in stable condition. Vascular access sheaths were removed in the holding area. There were no apparent complications. 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 ( Slow/fast AVNRT). Successful ablation of the slow AV makayla pathway with elimination of 1:1 antegrade conduction over the slow AV makayla pathway, all retrograde conduction over the slow AV makayla pathway and the inducibility of AVNRT. No complications.
== END 2017-09-15 13:53 | disposition home or self-care (01) ==
LOC: FSGY 10:45 → F2W 14:29
PROVIDERS: ADMIT Internal Medicine Cardiovascular Disease; ATTEND Internal Medicine Cardiovascular Disease
DX: I47.1 Supraventricular tachycardia (principal); R00.2 Palpitations; R42 Dizziness and giddiness
CPT/HCPCS: 90471; 93005; 93306; 93613; 93621; 93623; 93653; C1732; G0378; C1730; G0008; J1100; J1644; J2370; J2405; J2704; J3010